=== PATIENT | male | born 1965 | race Caucasian/White ===

== ENCOUNTER 2016-08-27 14:36 | Inpatient (IN) | payer BC ==
[2016-08-27] MEDS ORDERED: Sodium Chloride 0.9% 1,000 ML IV SCH (15:15)
[2016-08-27] MEDS ORDERED: Ketorolac 30 MG/ML SDV IVPUSH ONE (15:17)
--- NOTE | 2016-08-27 15:18 | EDM.PDOC ---
ED HPI GI/ABDOMINAL - General Chief Complaint: Abdominal Pain Stated Complaint: BLOOD IN STOOL Time Seen by Provider: 08/27/16 14:59 Source of Information: Reports: Patient History Limitations: Reports: No limitations - History of Present Illness INITIAL COMMENTS - FREE TEXT/NARRATIVE: HISTORY AND PHYSICAL: History of present illness: [] Patient is a 51-year-old male with a history of diverticulitis previously recently clinically diagnosed by a local clinic with an episode of diverticulitis. Patient was prescribed Levaquin and what sounds like Flagyl as it was medicine for diverticulitis prescribed 3 times a day. He's been compliant over the last 2 days with these meds. Last dose of resumed Flagyl earlier today. Patient states his symptoms have been worsening. He is fevers and chills. Patient has nausea and worsening left lower quadrant abdominal pain. Pain is mildly worse with movement but does not hurt significantly to walk. This has no vomiting but he has had some diarrhea and earlier today a few streaks of blood in that diarrhea. He does not have any coagulopathy or take any anticoagulation medication. Review of systems: As per history of present illness and below otherwise all systems reviewed and negative. Past medical history: As per history of present illness and as reviewed below otherwise noncontributory. Surgical history: As per history of present illness and as reviewed below otherwise noncontributory. Social history: No reported history of drug or alcohol abuse. Family history: As per history of present illness and as reviewed below otherwise noncontributory. Physical exam: HEENT: Atraumatic, normocephalic, pupils reactive, negative for conjunctival pallor or scleral icterus, mucous membranes moist, throat clear, neck supple, nontender, trachea midline. Lungs: Clear to auscultation, breath sounds equal bilaterally, chest nontender. Heart: S1S2, regular, negative for clicks, rubs, or JVD. Abdomen: Soft, nondistended, lower quadrant tenderness. No guarding or rebound. Bowel sounds. Nondistended Negative for masses or hepatosplenomegaly. Negative for costovertebral tenderness. Pelvis: Stable nontender. Genitourinary: Deferred. Rectal: Deferred. Extremities: Atraumatic, negative for cords or calf pain. Neurovascular unremarkable. Neuro: Awake, alert, oriented. Cerebellum unremarkable. Motor and sensory unremarkable throughout. Exam nonfocal. Diagnostics: [] Therapeutics: [] Impression: [] Plan: [] Definitive disposition and diagnosis as appropriate pending reevaluation and review of above. - Related Data Allergies/ADRs: Allergies Allergy/AdvReac Type Severity Reaction Status Date / Time No Known Allergies Allergy Verified 08/27/16 15:35 Home Meds: Home Meds . [No Known Home Meds] 08/27/16 [History] ED ROS GENERAL - Review of Systems Review Of Systems: See Below (See history of present illness) ED EXAM, GI/ABD - Physical Exam Exam: See Below (See history of present illness) Course - Vital Signs Text/Narrative:: Signs and symptoms consistent with exacerbation of diverticulitis. Patient well- appearing and afebrile emergency department. Mild tachycardia on arrival 105. Labs with significantly elevated white blood cell count at 28. No bandemia. Patient with no peritoneal signs. Vital signs stable and improved IV fluids. Patient's pain is well-controlled. CT shows moderate to severe diverticulitis with ingestion of intramural abscess versus phlegmon however per radiology no drainable collection is identified. No evidence of perforation. Patient remains clinically stable. Case discussed with Dr. Rob Jacobson hospitalist corporate communications manager who is aware of history and findings and agrees with inpatient admission for treatment of the diverticulitis with sirs and sepsis. Patient with no evidence of septic shock. Stable on reevaluation prior to admission. And a box initiated blood cultures and lactate pending. Last Recorded V/S: Last Vital Signs Temp 37.0 C 08/27/16 15:19 Pulse 105 H 08/27/16 15:19 Resp 20 08/27/16 15:19 BP 129/68 08/27/16 15:19 Pulse Ox 96 08/27/16 15:19 - Orders/Labs/Meds Orders: Active Orders 24 hr Category Date Time Status CULTURE BLOOD [BC] Stat Lab 08/27/16 17:32 Received CULTURE BLOOD [BC] Stat Lab 08/27/16 17:53 Received UA W/MICROSCOPIC [URIN] Stat Lab 08/27/16 15:14 Uncollected Sodium Chloride 0.9% [Normal Saline] 1,000 ml Med 08/27/16 15:15 Active IV ASDIRECTED Blood Culture x2 Reflex Set [OM.PC] Stat Oth 08/27/16 17:22 Ordered Medication Orders Acetaminophen (Tylenol) 650 mg PO Q4H PRN PRN Reason: Pain (Mild 1-3)/fever Sodium Chloride (Normal Saline) 1,000 mls @ 999 mls/hr IV ASDIRECTED [facility] Last Admin: 08/27/16 16:38 Dose: 999 mls/hr Ciprofloxacin/Dextrose 400 mg/ (Premix) 200 mls @ 200 mls/hr IV Q12H [facility] Metronidazole 500 mg/ Premix 100 mls @ 100 mls/hr IV QID [facility] Ondansetron HCl (Zofran Odt) 4 mg PO Q4H PRN PRN Reason: nausea, able to take PO Temazepam (Restoril) 15 mg PO BEDTIME PRN PRN Reason: Sleep Tramadol HCl (Ultram) 50 mg PO Q6H PRN PRN Reason: Pain Labs: Laboratory Tests 08/27/16 08/27/16 08/27/16 Range/Units 15:27 15:27 17:32 WBC 28.41 H (4.0-11.0) K/uL RBC 4.97 (4.50-5.90) M/uL Hgb 14.8 (13.0-17.0) g/dL Hct 44.0 (38.0-50.0) % MCV 88.5 (80.0-98.0) fL MCH 29.8 (27.0-32.0) pg MCHC 33.6 (31.0-37.0) g/dL RDW Std Deviation 45.8 (28.0-62.0) fl RDW Coeff of Sarah 14 (11.0-15.0) % Plt Count 247 (150-400) K/uL MPV 8.90 (7.40-12.00) fL Neut % (Auto) 85.7 H (48.0-80.0) % Lymph % (Auto) 7.1 L (16.0-40.0) % [place] % (Auto) 7.0 (0.0-15.0) % Eos % (Auto) 0.1 (0.0-7.0) % Baso % (Auto) 0.1 (0.0-1.5) % Neut # 24.4 H (1.4-5.7) K/uL Lymph # 2.0 (0.6-2.4) K/uL [place] # 2.0 H (0.0-0.8) K/uL Eos # 0.0 (0.0-0.7) K/uL Baso # 0.0 (0.0-0.1) K/uL Nucleated RBC % 0.0 /100WBC Nucleated RBCs # 0 K/uL Lactate 0.8 (0.20-2.00) mmol/L Sodium 137 (136-146) mmol/L Potassium 3.7 (3.5-5.1) mmol/L Chloride 106 (98-110) mmol/L Carbon Dioxide 22 (21-31) mmol/L BUN 13 (6.0-23.0) mg/dL Creatinine 1.0 (0.6-1.5) mg/dL Est Cr Clr Drug Dosing TNP Estimated GFR (MDRD) > 60.0 ml/min Glucose 111 H (60-110) mg/dL Calcium 9.1 (8.8-10.8) mg/dL Total Bilirubin 1.2 (0.1-1.5) mg/dL AST 15 (5-40) IU/L ALT 14 (8-54) IU/L Alkaline Phosphatase 78 (40-150) Total Protein 7.3 (6.0-8.0) g/dL Albumin 3.8 (3.5-5.0) g/dL Globulin 3.5 (2.0-3.5) g/dL Albumin/Globulin Ratio 1.1 L (1.3-2.8) Lipase 16 (7-80) U/L Meds: Medications Generic Name Dose Route Start Last Admin Trade Name Freq PRN Reason Stop Dose Admin Acetaminophen 650 mg 08/27/16 18:25 Tylenol PO Q4H PRN Pain (Mild 1-3)/fever Sodium Chloride 1,000 mls @ 999 mls/hr 08/27/16 15:15 08/27/16 16:38 Normal Saline IV 999 mls/hr ASDIRECTED GEOVANNY Administration Ciprofloxacin/Dextrose 400 mg/ 200 mls @ 200 mls/hr 08/27/16 18:30 Premix IV Q12H GEOV[facility]NY Metronidazole 500 mg/ Premix 100 mls @ 100 mls/hr 08/28/16 00:00 IV QID [facility] Ondansetron HCl 4 mg 08/27/16 18:25 Zofran Odt PO Q4H PRN nausea, able to take PO Temazepam 15 mg 08/27/16 18:25 Restoril PO BEDTIME PRN Sleep Tramadol HCl 50 mg 08/27/16 18:25 Ultram PO Q6H PRN Pain Discontinued Medications Generic Name Dose Route Start Last Admin Trade Name Freq PRN Reason Stop Dose Admin Sodium Chloride 1,000 mls @ 999 mls/hr 08/27/16 17:23 08/27/16 17:41 Normal Saline IV 08/27/16 18:23 999 mls/hr STAT ONE Administration Piperacillin Sod/Tazobactam 100 mls @ 100 mls/hr 08/27/16 17:37 08/27/16 17: 55 Sod 4.5 gm/ Sodium Chloride IV 08/27/16 18:36 100 mls/hr ONETIME ONE Administration Iopamidol 100 ml 08/27/16 16:36 08/27/16 16:36 Isovue Multipack-370 (76%) IVPUSH 08/27/16 16:37 100 ml ONETIME STA Administration Ketorolac Tromethamine 30 mg 08/27/16 15:17 08/27/16 16:39 Toradol IVPUSH 08/27/16 15:18 30 mg ONETIME ONE Administration Departure - Departure Time of Disposition: 17:41 Disposition: Admitted As Inpatient 64 Condition: fair Clinical Impression: Diverticulitis large intestine Qualifiers: Diverticulitis bleeding: with bleeding Diverticulitis complication: without perforation or abscess Qualified Code(s): K57.33 - Diverticulitis of large intestine without perforation or abscess with bleeding - My Orders Last 24 Hours: My Active Orders 08/27/16 15:14 UA W/MICROSCOPIC [URIN] Stat 08/27/16 15:15 Sodium Chloride 0.9% [Normal Saline] 1,000 ml IV ASDIRECTED 08/27/16 17:22 Blood Culture x2 Reflex Set [OM.PC] Stat 08/27/16 17:32 CULTURE BLOOD [BC] Stat 08/27/16 17:53 CULTURE BLOOD [BC] Stat - Assessment/Plan Last 24 Hours: My Active Orders 08/27/16 15:14 UA W/MICROSCOPIC [URIN] Stat 08/27/16 15:15 Sodium Chloride 0.9% [Normal Saline] 1,000 ml IV ASDIRECTED 08/27/16 17:22 Blood Culture x2 Reflex Set [OM.PC] Stat 08/27/16 17:32 CULTURE BLOOD [BC] Stat 08/27/16 17:53 CULTURE BLOOD [BC] Stat
[2016-08-27 16:11] LABS: CHLORIDE,CL 106 mmol/L (98-110); SODIUM,NA 137 mmol/L (136-146)
[2016-08-27] MEDS ORDERED: Iopamidol 755 MG/ML 500 ML Multipack Bottle IVPUSH STA (16:36)
[2016-08-27] MEDS ORDERED: Sodium Chloride 0.9% 1,000 ML IV ONE (17:23)
[2016-08-27] MEDS ORDERED: Piperacillin/Tazobactam 4.5 GM in Sodium Chloride 0.9% 100 ML IV ONE (17:37)
[2016-08-27] MEDS ORDERED: Acetaminophen 325 MG Tab PO PRN (18:25)
[2016-08-27] MEDS ORDERED: traMADol 50 MG Tab PO PRN (18:25)
[2016-08-27] MEDS ORDERED: Ondansetron 4 MG Tab.DIS PO PRN (18:25)
[2016-08-27] MEDS ORDERED: Ciprofloxacin in D5W 400 MG in Premix Bag 1 BAG IV SCH ×2 (18:30)
[2016-08-27] MEDS ORDERED: metroNIDAZOLE/Normal Saline 500 MG in Premix Bag 1 BAG IV SCH (18:45)
--- NOTE | 2016-08-27 18:48 | PCM.HP ---
H&P History of Present Illness - General Date of Service: 08/27/16 Admit Problem/Dx: Admission Diagnosis/Problem Admission Diagnosis/Problem Diverticulitis Source of Information: Patient History Limitations: Reports: No limitations - History of Present Illness Initial Comments - Free Text/Narative: 51-year-old male admitted for diverticulitis on 08/27/16. Patient began to have symptoms last Wednesday. He states that he was having some diarrhea with minor amounts of blood. He took [id number] Imodium which seemed to help. Through the weekend his symptoms ddid seem to improve with taking Imodium so he returned to work on Wednesday. He began to have increasing symptoms on Wednesday evening and awoke Wednesday morning with severe lower abdominal pain. He had bright red blood per rectum and diarrhea and presented to the emergency department today. Patient states he has had a previous episode of diverticulitis, but it was not as severe as this. He did not have a colonscopy of this event. Patient states that the majority of his abdominal pain is located in the left lower quadrant. It is constant and crampy. He did have some associated nausea which has resolved. He denies any fever but states that he did have severe chills over the weekend and awoke with chills this morning. Patient denies any chest pain, palpitations, shortness of breath, syncopal episodes, or focal neurologic deficits. Patient has no previous medical history other than one episode of diverticulitis but takes no medications. Patient is originally from [place] and sees his family doctor there by the name of Vikas Lyons at [facility]. In the emergency department patient was found to have leukocytosis of 28.41, a normal lactate of 0.8, and a CT showing moderate to severe diverticulitis involving the proximal and mid portions of the sigmoid colon. There was no perforation. There was a probable very small intramural abscess or phlegmon. No drainable abscess collection was identified. He was given one dose of Zosyn, and blood cultures were obtained. Patient will be admitted for diverticulitis. Left Lower Abdomen Pain Score (Numeric/FACES): 3 - Related Data Allergies/Adverse Reactions: Allergies Allergy/AdvReac Type Severity Reaction Status Date / Time No Known Allergies Allergy Verified 08/27/16 15:35 Home Medications: Home Meds . [No Known Home Meds] 08/27/16 [History] Past Medical History HEENT History: Reports: None Cardiovascular History: Reports: None Respiratory History: Reports: None Gastrointestinal History: Reports: Diverticulosis Genitourinary History: Reports: None Musculoskeletal History: Reports: Fracture Neurological History: Reports: None Psychiatric History: Reports: None Endocrine/Metabolic History: Reports: None Hematologic History: Reports: None Immunologic History: Reports: None Oncologic (Cancer) History: Reports: None Dermatologic History: Reports: None - Past Surgical History HEENT Surgical History: Reports: None Cardiovascular Surgical History: Reports: None GI Surgical History: Reports: None Male Surgical History: Reports: None Musculoskeletal Surgical History: Reports: Other (see below) Other Musculoskeletal Surgeries/Procedures:: back surgery x 2, ankle fx, pelvic fx, L hip surgery Social & Family History - Tobacco Use Smoking Status *Q: Current Every Day Smoker Years of Tobacco use: 25 Packs/Tins Daily: 0.5 - Caffeine Use Caffeine Use: Reports: Coffee - Recreational Drug Use Recreational Drug Use: No H&P Review of Systems - Review of Systems: Review Of Systems: See Below General: Reports: chills, night sweats, diaphoresis. Denies: fever HEENT: Denies: ear pain, eye pain, headaches, sore throat Pulmonary: Denies: Shortness of Breath, Hemoptysis Cardiovascular: Denies: chest pain, palpitations, edema Gastrointestinal: Reports: Abdominal pain, Bloody stool, Diarrhea, Nausea Genitourinary: Denies: dysuria, hematuria Musculoskeletal: Denies: neck pain, leg pain Skin: Denies: cyanosis Psychiatric: Denies: confusion Neurological: Denies: Confusion, Dizziness Hematologic/Lymphatic: Denies: anemia, easy bleeding, easy bruising Immunologic: Denies: food allergy Exam - Exam Exam: See Below - Vital Signs Vital Signs: Last Vital Signs Temp 37.0 C 08/27/16 15:19 Pulse 105 H 08/27/16 15:19 Resp 20 08/27/16 15:19 BP 129/68 08/27/16 15:19 Pulse Ox 96 08/27/16 15:19 Weight: 95.254 kg - Exam General: alert, oriented, cooperative HEENT: PERRLA, Hearing intact, Mucosa moist & pink, Nares patent, Normal nasal septum, Posterior pharynx clear, Conjunctiva clear, EOMI, EACs clear, TMs clear Neck: supple, trachea midline, 2 Lungs: Clear to auscultation, Normal respiratory effort Cardiovascular: regular rate, regular rhythm Abdomen: normal bowel sounds, soft, tenderness, hyperactive bowel sounds Back Exam: normal inspection Extremities: normal inspection, normal pulses Peripheral Pulses: 2+: radial (L), radial (R), posterior tibial (L), posterior tibial (R), dorsalis pedis (L), dorsalis pedis (R) Skin: warm, dry, intact Neurological: cranial nerves intact Neuro Extensive - Mental Status: alert, oriented x3, normal mood/affect, normal cognition Neuro Extensive - Motor, Sensory, Reflexes: CN II-XII intact, normal gait Psychiatric: alert, normal affect, normal mood - Patient Data Result Diagrams: 08/27/16 15:27 08/27/16 15:27 *Q Meaningful Use (ADM) - VTE *Q VTE Criteria *Q: - Stroke *Q Stroke Criteria *Q: - AMI *Q AMI Criteria *Q: - Problem List (1) Diverticulitis large intestine SNOMED Code(s): 2364740 ICD Code: K57.32 - DVTRCLI OF LG INT W/O PERFORATION OR ABSCESS W/O BLEEDING Status: Acute Priority: High Current Visit: Yes Qualifiers: Diverticulitis bleeding: with bleeding Diverticulitis complication: without perforation or abscess Qualified Code(s): K57.33 - Diverticulitis of large intestine without perforation or abscess with bleeding Problem List Initiated/Reviewed/Updated: Yes Orders Last 24hrs: Active Orders 24 hr Category Date Time Status Patient Status [ADT] Routine ADT 08/27/16 18:25 Ordered Antiembolic Devices [RC] PER UNIT ROUTINE Care 08/27/16 18:33 Ordered May Shower [RC] ASDIRECTED Care 08/27/16 18:25 Ordered Oxygen Therapy [RC] PRN Care 08/27/16 18:25 Ordered Up ad Charu [RC] ASDIRECTED Care 08/27/16 18:25 Ordered VTE/DVT Education [RC] PER UNIT ROUTINE Care 08/27/16 18:25 Ordered Vital Signs [RC] Q4H Care 08/27/16 18:25 Ordered Low Fiber Diet [DIET] Diet 08/27/16 Breakfast Ordered BASIC METABOLIC PANEL,BMP [CHEM] DAILY Lab 08/28/16 05:10 Ordered BASIC METABOLIC PANEL,BMP [CHEM] DAILY Lab 08/29/16 05:10 Ordered BASIC METABOLIC PANEL,BMP [CHEM] DAILY Lab 08/30/16 05:10 Ordered BASIC METABOLIC PANEL,BMP [CHEM] DAILY Lab 08/31/16 05:10 Ordered CBC WITH AUTO DIFF [HEME] DAILY Lab 08/28/16 05:10 Ordered CBC WITH AUTO DIFF [HEME] DAILY Lab 08/29/16 05:10 Ordered CBC WITH AUTO DIFF [HEME] DAILY Lab 08/30/16 05:10 Ordered CBC WITH AUTO DIFF [HEME] DAILY Lab 08/31/16 05:10 Ordered Acetaminophen [Tylenol] Med 08/27/16 18:25 Ordered 650 mg PO Q4H PRN Ciprofloxacin in D5W [Cipro in D5W 400 MG/200 ML] 400 Med 08/27/16 18:30 Ordered mg Premix Bag 1 bag IV Q12H Ondansetron [Zofran ODT] Med 08/27/16 18:25 Ordered 4 mg PO Q4H PRN Temazepam [Restoril] Med 08/27/16 18:25 Ordered 15 mg PO BEDTIME PRN metroNIDAZOLE/Normal Saline [Flagyl 500 MG in NS 100 ML Med 08/28/16 00:00 Ordered ] 500 mg Premix Bag 1 bag IV QID traMADol [Ultram] Med 08/27/16 18:25 Ordered 50 mg PO Q6H PRN Sequential Compression Device [OM.PC] Per Unit Routine Oth 08/27/16 18:27 Ordered Resuscitation Status Routine Resus Stat 08/27/16 18:25 Ordered Medication Orders Sodium Chloride (Normal Saline) 1,000 mls @ 999 mls/hr IV ASDIRECTED [facility] Last Admin: 08/27/16 16:38 Dose: 999 mls/hr Assessment/Plan Comment:: 51 yo male admitted 08/27/16 for acute diverticulitis of the large intestine. Diverticulitis: Patient admitted to floor and start on Cipro, Flagyl. Will have low residue diet to prevent increased bowel motility. Will use Tylenol primarily for pain control with Toradol for more severe pain. Will try and stay away from opiods so as not to slow bowel. Patient had a white count of 28.41 in ED but normal lactate. Will get daily labs to assess effectiveness of antibiotics and switch to oral possibly tomorrow. VTE: SCD no pharmacologic secondary to active bleeding. Up and ambulate as tolerated. Dispo: 1-2 days pending.
--- NOTE | 2016-08-27 19:03 | CT ---
EXAM DATE: 08/27/16 PATIENT'S AGE: 51 Patient: KATHYA SAL Facility: [place], [place] Site . Site : [id number] Study: CT Abdomen/Pelvis W CONT [id number]/16/2017 4:38:06 PM Ordering Physician: Perry Baker Final Report: INDICATION: Abdominal pain. Blood in stool. Seen in clinic this morning with diagnosis of diverticulitis. CT ABDOMEN AND PELVIS WITH CONTRAST TECHNIQUE: Multidetector CT imaging was performed through the abdomen and pelvis following intravenous contrast administration. Coronal and sagittal reconstructions were generated. COMPARISON: None. FINDINGS: Lower chest: Lung bases clear aside from minimal atelectasis. Liver: Within normal limits. Gallbladder and bile ducts: No gallbladder wall thickening or calcified gallstones. No biliary dilation identified. Pancreas: Unremarkable. Spleen: Normal. Adrenals: No nodules or masses. Kidneys, ureters, and urinary bladder: No renal masses or hydronephrosis. Nondistended urinary bladder with resultant diffuse wall prominence. Gastrointestinal tract and peritoneum: Normal caliber small bowel without wall thickening or obstruction. The appendix is normal. Multiple colonic diverticula. Wall thickening of the proximal and mid portions of the sigmoid colon with adjacent fat stranding, consistent with diverticulitis. Small ovoid hypodensity within the superior wall of the mid sigmoid colon measuring 2 x 1 x 1 centimeters in size, as on image 112 of series 2 1 and image 42 of series 203 consistent with a very small intramural abscess or phlegmon. No drainable abscess collection identified. No free air. Vascular structures: Normal caliber abdominal aorta with minimal atherosclerotic calcification. Lymph nodes: No pathologically enlarged nodes identified. Reproductive organs: No pelvic masses. Bones: Mild spinal degenerative changes. IMPRESSION: Moderate to severe diverticulitis involving the proximal and mid portions of the sigmoid colon. No evidence of perforation. Probable very small intramural abscess or phlegmon, as noted. No drainable abscess collection identified. ASHUTOSH MARISCAL MD [employer] [employer] Dictated by Steven Mariscal MD @ 08/27/2016 4:50:01 PM Dictated by: Steven Mariscal MD @ 08/27/2016 16:55:35 (Electronic Signature) Report Signed by Proxy and Original Signed Document filed in the Medical Record. [facility]
[2016-08-27] MEDS: Pantoprazole 80 MG in Sodium Chloride 0.9% 100 ML IV SCH (21:38)
[2016-08-28] MEDS ORDERED: metroNIDAZOLE/Normal Saline 500 MG in Premix Bag 1 BAG IV SCH ×2
[2016-08-28] MEDS: Piperacillin/Tazobactam 4.5 GM in Sodium Chloride 0.9% 100 ML IV SCH ×5 (00:07→23:26)
[2016-08-28] MEDS: Temazepam 15 MG Cap PO PRN ×2 (00:08→20:42)
[2016-08-28] MEDS ORDERED: Sodium Chloride 0.9% 500 ML IV SCH (00:30)
[2016-08-28] MEDS: Sodium Chloride 0.9% 1,000 ML IV SCH ×3 (01:00→20:42)
[2016-08-28 05:47] LABS: CHLORIDE,CL 112 mmol/L (98-110); SODIUM,NA 139 mmol/L (136-146)
[2016-08-28] MEDS: Pantoprazole 80 MG in Sodium Chloride 0.9% 100 ML IV SCH ×2 (06:31→15:31)
--- NOTE | 2016-08-28 08:27 | PCM.SN ---
- Free Text/Narrative Note: pt seen, chart reviewed; diverticulitis w abscess by h/p and imaging studies; npo w PPI, iv abx, serial abd exam; start PO diet when pain resolved; wesley PO X 24 hr, home on PO abx X 2 - 3 wks for a complete course of 3 wks abx; then fu with provider and a fu colonoscopy 2 - 3 mos from today; will follow with you; [id number]
--- NOTE | 2016-08-28 09:52 | PCM.PN ---
- General Info Date of Service: 08/28/16 Admission Dx/Problem (Free Text): Admission Diagnosis/Problem Admission Diagnosis/Problem Diverticulitis Subjective Update: Doing well this morning. Very little pain now. Has made arrangements to stay at hospital for extended time. No complaints at this time. Functional Status: Reports: pain controlled, urinating - Review of Systems General: Denies: Fever, Weakness Pulmonary: Denies: shortness of breath, hemoptysis, wheezing Cardiovascular: Denies: Chest Pain, Palpitations, Edema Gastrointestinal: Denies: Abdominal pain, Diarrhea Genitourinary: Denies: dysuria Musculoskeletal: Denies: leg pain, foot pain Skin: Denies: cyanosis Neurological: Denies: Confusion, Dizziness Psychiatric: Denies: confusion, depression - Patient Data Vitals - most recent: Last Vital Signs Temp 36.2 C 08/28/16 08:00 Pulse 77 08/28/16 08:00 Resp 20 08/28/16 08:00 BP 136/70 08/28/16 08:00 Pulse Ox 96 08/28/16 08:00 Weight - most recent: 95.254 kg I&O - last 24 hours: Intake & Output 08/27/16 08/28/16 08/28/16 22:59 06:59 14:59 Intake Total 100 850 Output Total 300 Balance 100 550 Lab Results last 24 hrs: Laboratory Results - last 24 hr 08/28/16 08/28/16 Range/Units 05:08 05:08 WBC 17.24 H (4.0-11.0) K/uL RBC 4.49 L (4.50-5.90) M/uL Hgb 13.1 (13.0-17.0) g/dL Hct 40.4 (38.0-50.0) % MCV 90.0 (80.0-98.0) fL MCH 29.2 (27.0-32.0) pg MCHC 32.4 (31.0-37.0) g/dL RDW Std Deviation 46.8 (28.0-62.0) fl RDW Coeff of Sarah 14 (11.0-15.0) % Plt Count 249 (150-400) K/uL MPV 9.30 (7.40-12.00) fL Neut % (Auto) 78.0 (48.0-80.0) % Lymph % (Auto) 14.1 L (16.0-40.0) % Edwards % (Auto) 6.9 (0.0-15.0) % Eos % (Auto) 0.8 (0.0-7.0) % Baso % (Auto) 0.2 (0.0-1.5) % Neut # 13.5 H (1.4-5.7) K/uL Lymph # 2.4 (0.6-2.4) K/uL Edwards # 1.2 H (0.0-0.8) K/uL Eos # 0.1 (0.0-0.7) K/uL Baso # 0.0 (0.0-0.1) K/uL Nucleated RBC % 0.0 /100WBC Nucleated RBCs # 0 K/uL Sodium 139 (136-146) mmol/L Potassium 3.9 (3.5-5.1) mmol/L Chloride 112 H (98-110) mmol/L Carbon Dioxide 20 L (21-31) mmol/L BUN 11 (6.0-23.0) mg/dL Creatinine 0.9 (0.6-1.5) mg/dL Est Cr Clr Drug Dosing 110.36 mL/min Estimated GFR (MDRD) > 60.0 ml/min Glucose 93 (60-110) mg/dL Calcium 7.8 L (8.8-10.8) mg/dL Med Orders - Current: Current Medications Acetaminophen (Tylenol) 650 mg PO Q4H PRN PRN Reason: Pain (Mild 1-3)/fever Sodium Chloride (Normal Saline) 1,000 mls @ 999 mls/hr IV ASDIRECTED [facility] Last Admin: 08/27/16 16:38 Dose: 999 mls/hr Piperacillin Sod/Tazobactam (Sod 4.5 gm/ Sodium Chloride) 100 mls @ 100 mls/hr IV Q6H [facility] Last Admin: 08/28/16 05:17 Dose: 100 mls/hr Pantoprazole Sodium 80 mg/ (Sodium Chloride) 100 mls @ 10 mls/hr IV Q10H [facility] Last Admin: 08/28/16 06:31 Dose: 10 mls/hr Sodium Chloride (Normal Saline) 500 mls @ 999 mls/hr IV .BOLUS [facility] Last Admin: 08/28/16 00:28 Dose: 999 mls/hr Sodium Chloride (Normal Saline) 1,000 mls @ 125 mls/hr IV ASDIRECTED [facility] Last Admin: 08/28/16 01:00 Dose: 125 mls/hr Ondansetron HCl (Zofran Odt) 4 mg PO Q4H PRN PRN Reason: nausea, able to take PO Temazepam (Restoril) 15 mg PO BEDTIME PRN PRN Reason: Sleep Last Admin: 08/28/16 00:08 Dose: 15 mg Tramadol HCl (Ultram) 50 mg PO Q6H PRN PRN Reason: Pain Discontinued Medications Sodium Chloride (Normal Saline) 1,000 mls @ 999 mls/hr IV STAT ONE Stop: 08/27/16 18:23 Last Admin: 08/27/16 17:41 Dose: 999 mls/hr Piperacillin Sod/Tazobactam (Sod 4.5 gm/ Sodium Chloride) 100 mls @ 100 mls/hr IV ONETIME ONE Stop: 08/27/16 18:36 Last Admin: 08/27/16 17:55 Dose: 100 mls/hr Iopamidol (Isovue Multipack-370 (76%)) 100 ml IVPUSH ONETIME STA Stop: 08/27/16 16:37 Last Admin: 08/27/16 16:36 Dose: 100 ml Ketorolac Tromethamine (Toradol) 30 mg IVPUSH ONETIME ONE Stop: 08/27/16 15:18 Last Admin: 08/27/16 16:39 Dose: 30 mg - Exam Quality Assessment: supplemental oxygen General: alert, oriented HEENT: Pupils equal, Pupils reactive, EOMI, Mucous membr. moist/pink Neck: supple Lungs: Clear to auscultation, Normal respiratory effort Cardiovascular: Regular Rate, Regular Rhythm Abdomen: bowel sounds present, soft, no tenderness, no distension (Male) Exam: No hernia, Normal inspection, Normal prostate, Circumcised Back Exam: normal inspection, full range of motion Extremities: no edema Peripheral Pulses: 2+: radial (L), radial (R), posterior tibial (L), posterior tibial (R), dorsalis pedis (L), dorsalis pedis (R) Skin: warm, dry, intact Wound/Incisions: healing well Neurological: no new focal deficit Psy/Mental Status: alert, normal affect, normal mood - Problem List & Annotations (1) Diverticulitis large intestine SNOMED Code(s): 5533844 Code(s): K57.32 - DVTRCLI OF LG INT W/O PERFORATION OR ABSCESS W/O BLEEDING Status: Acute Priority: High Qualifiers: Diverticulitis bleeding: with bleeding Diverticulitis complication: without perforation or abscess Qualified Code(s): K57.33 - Diverticulitis of large intestine without perforation or abscess with bleeding - Problem List Review Problem List Initiated/Reviewed/Updated: Yes - My Orders Last 24 Hours: My Active Orders 08/27/16 18:25 Patient Status [ADT] Routine May Shower [RC] ASDIRECTED Oxygen Therapy [RC] PRN Up ad Charu [RC] ASDIRECTED VTE/DVT Education [RC] PER UNIT ROUTINE Vital Signs [RC] Q4H Acetaminophen [Tylenol] 650 mg PO Q4H PRN Ondansetron [Zofran ODT] 4 mg PO Q4H PRN Temazepam [Restoril] 15 mg PO BEDTIME PRN traMADol [Ultram] 50 mg PO Q6H PRN Resuscitation Status Routine 08/27/16 18:27 Sequential Compression Device [OM.PC] Per Unit Routine 08/27/16 18:33 Antiembolic Devices [RC] PER UNIT ROUTINE 08/27/16 20:30 Pantoprazole [Protonix IV] 80 mg Sodium Chloride 0.9% [Normal Saline] 100 ml IV Q10H 08/28/16 00:00 Piperacillin/Tazobactam [Piperacil-Tazobact] 4.5 gm Sodium Chloride 0.9% [ Normal Saline] 100 ml IV Q6H 08/29/16 05:10 BASIC METABOLIC PANEL,BMP [CHEM] DAILY CBC WITH AUTO DIFF [HEME] DAILY 08/30/16 05:10 BASIC METABOLIC PANEL,BMP [CHEM] DAILY CBC WITH AUTO DIFF [HEME] DAILY 08/31/16 05:10 BASIC METABOLIC PANEL,BMP [CHEM] DAILY CBC WITH AUTO DIFF [HEME] DAILY - Plan Plan:: 51 yo male admitted 08/27/16 for acute diverticulitis of the large intestine. Diverticulitis: Patient admitted to floor and start on Cipro, Flagyl. Will have low residue diet to prevent increased bowel motility. Will use Tylenol primarily for pain control with Toradol for more severe pain. Will try and stay away from opiods so as not to slow bowel. Patient had a white count of 28.41 in ED but normal lactate. Will get daily labs to assess effectiveness of antibiotics and switch to oral possibly tomorrow. VTE: SCD no pharmacologic secondary to active bleeding. Up and ambulate as tolerated. Dispo: 1-2 days pending.
[2016-08-29] MEDS: Pantoprazole 80 MG in Sodium Chloride 0.9% 100 ML IV SCH (01:41)
[2016-08-29] MEDS: Piperacillin/Tazobactam 4.5 GM in Sodium Chloride 0.9% 100 ML IV SCH (05:03)
[2016-08-29] MEDS: Sodium Chloride 0.9% 1,000 ML IV SCH (05:04)
[2016-08-29 07:24] LABS: CHLORIDE,CL 110 mmol/L (98-110); SODIUM,NA 140 mmol/L (136-146)
[2016-08-29 08:52] VITALS: BP 138/78
--- NOTE | 2016-08-29 11:57 | PCM.DCSUM1 ---
Discharge Summary - Discharge Data Discharge Date: 08/29/16 Discharge Disposition: Home, Self-Care 01 Condition: Good - Patient Summary/Data Hospital Course: Admission diagnosis: Acute diverticulitis Hospital Course: 51-year-old male admitted for diverticulitis on 08/27/16. He presented with abdominal pain and bloody diarrhea. He had WBC of 28.41 and a normal lactate of 0.8. CT scan showed moderate to severe diverticulitis involving the proximal and mid portions of the sigmoid colon.There was a probable very small intramural abscess or phlegmon. No drainable abscess collection was identified. He was treated with IV Zosyn and bowel rest. His abdominal pain and bloody diarrhea did resolve. His diet was advance to clears which he tolerated well. His Hgb remained stable at around 13. Today on his third hospital day he is requesting discharge. Dr. Forte a general surgeon was consulted and recommend two weeks of Ciprofloxacin and Flagyl with colonoscopy in two months. He is to follow up with his PCP Vikas Lyons at [facility]. - Patient Instructions Diet: Usual Diet as Tolerated - Discharge Plan Prescriptions/Med Rec: Ciprofloxacin HCl [Cipro] 500 mg PO Q12H #14 tablet metroNIDAZOLE [Flagyl] 500 mg PO Q8H #21 tablet Home Medications: Home Meds Ciprofloxacin HCl [Cipro] 500 mg PO Q12H #14 tablet 08/29/16 [Rx] metroNIDAZOLE [Flagyl] 500 mg PO Q8H #21 tablet 08/29/16 [Rx] Patient Handouts: Diverticulitis, [id number], Ciprofloxacin tablets, Metronidazole tablets or capsules Referrals: PCP,None [Primary Care Provider] - - Patient Data Vitals - Most Recent: Last Vital Signs Temp 36.7 C 08/29/16 07:00 Pulse 77 08/29/16 07:00 Resp 18 08/29/16 07:00 BP 138/78 08/29/16 07:00 Pulse Ox 94 L 08/29/16 07:00 Weight - Most Recent: 95.254 kg I&O - Last 24 hours: Intake & Output 08/28/16 08/29/16 08/29/16 22:59 06:59 14:59 Intake Total 1600 1360 Output Total 800 1000 Balance 800 360 Lab Results - Last 24 hrs: Laboratory Results - last 24 hr 08/28/16 08/29/16 08/29/16 Range/Units 12:10 06:18 06:18 WBC 14.26 H (4.0-11.0) K/uL RBC 4.51 (4.50-5.90) M/uL Hgb 13.1 (13.0-17.0) g/dL Hct 40.4 (38.0-50.0) % MCV 89.6 (80.0-98.0) fL MCH 29.0 (27.0-32.0) pg MCHC 32.4 (31.0-37.0) g/dL RDW Std Deviation 45.5 (28.0-62.0) fl RDW Coeff of Sarah 14 (11.0-15.0) % Plt Count 251 (150-400) K/uL MPV 9.60 (7.40-12.00) fL Neut % (Auto) 76.0 (48.0-80.0) % Lymph % (Auto) 13.3 L (16.0-40.0) % Grimes % (Auto) 9.4 (0.0-15.0) % Eos % (Auto) 1.2 (0.0-7.0) % Baso % (Auto) 0.1 (0.0-1.5) % Neut # 10.8 H (1.4-5.7) K/uL Lymph # 1.9 (0.6-2.4) K/uL Grimes # 1.3 H (0.0-0.8) K/uL Eos # 0.2 (0.0-0.7) K/uL Baso # 0.0 (0.0-0.1) K/uL Nucleated RBC % 0.0 /100WBC Nucleated RBCs # 0 K/uL Sodium 140 (136-146) mmol/L Potassium 3.6 (3.5-5.1) mmol/L Chloride 110 (98-110) mmol/L Carbon Dioxide 21 (21-31) mmol/L BUN 6 (6.0-23.0) mg/dL Creatinine 0.8 (0.6-1.5) mg/dL Est Cr Clr Drug Dosing 124.16 mL/min Estimated GFR (MDRD) > 60.0 ml/min Glucose 67 (60-110) mg/dL Calcium 7.9 L (8.8-10.8) mg/dL Urine Color YELLOW Urine Appearance CLEAR Urine pH 6.0 (5.0-8.0) Ur Specific Force 1.025 (1.001-1.035) Urine Protein NEGATIVE (NEGATIVE) mg/dL Urine Glucose (UA) NEGATIVE (NEGATIVE) mg/dL Urine Ketones TRACE H (NEGATIVE) mg/dL Urine Occult Blood MODERATE (NEGATIVE) Urine Nitrite NEGATIVE (NEGATIVE) Urine Bilirubin NEGATIVE (NEGATIVE) Urine Urobilinogen 0.2 (<2.0) EU/dL Ur Leukocyte Esterase NEGATIVE (NEGATIVE) Urine RBC 2-4 (0-2/HPF) Urine WBC 0-1 (0-5/HPF) Ur Epithelial Cells RARE (NONE-FEW) Urine Bacteria RARE (NEGATIVE) NISH Results - Last 24 hrs: Microbiology 08/27/16 17:53 Aerobic Blood Culture - Preliminary Blood - Venous - Lab Draw NO GROWTH AFTER 1 DAY Anaerobic Blood Culture - Preliminary NO GROWTH AFTER 1 DAY Med Orders - Current: Current Medications Acetaminophen (Tylenol) 650 mg PO Q4H PRN PRN Reason: Pain (Mild 1-3)/fever Sodium Chloride (Normal Saline) 1,000 mls @ 999 mls/hr IV ASDIRECTED [facility] Last Admin: 08/27/16 16:38 Dose: 999 mls/hr Piperacillin Sod/Tazobactam (Sod 4.5 gm/ Sodium Chloride) 100 mls @ 100 mls/hr IV Q6H [facility] Last Admin: 08/29/16 05:03 Dose: 100 mls/hr Pantoprazole Sodium 80 mg/ (Sodium Chloride) 100 mls @ 10 mls/hr IV Q10H [facility] Last Admin: 08/29/16 01:41 Dose: 10 mls/hr Sodium Chloride (Normal Saline) 500 mls @ 999 mls/hr IV .BOLUS [facility] Last Admin: 08/28/16 00:28 Dose: 999 mls/hr Sodium Chloride (Normal Saline) 1,000 mls @ 125 mls/hr IV ASDIRECTED [facility] Last Admin: 08/29/16 05:04 Dose: 125 mls/hr Ondansetron HCl (Zofran Odt) 4 mg PO Q4H PRN PRN Reason: nausea, able to take PO Temazepam (Restoril) 15 mg PO BEDTIME PRN PRN Reason: Sleep Last Admin: 08/28/16 20:42 Dose: 15 mg Tramadol HCl (Ultram) 50 mg PO Q6H PRN PRN Reason: Pain Discontinued Medications Sodium Chloride (Normal Saline) 1,000 mls @ 999 mls/hr IV STAT ONE Stop: 08/27/16 18:23 Last Admin: 08/27/16 17:41 Dose: 999 mls/hr Piperacillin Sod/Tazobactam (Sod 4.5 gm/ Sodium Chloride) 100 mls @ 100 mls/hr IV ONETIME ONE Stop: 08/27/16 18:36 Last Admin: 08/27/16 17:55 Dose: 100 mls/hr Iopamidol (Isovue Multipack-370 (76%)) 100 ml IVPUSH ONETIME STA Stop: 08/27/16 16:37 Last Admin: 08/27/16 16:36 Dose: 100 ml Ketorolac Tromethamine (Toradol) 30 mg IVPUSH ONETIME ONE Stop: 08/27/16 15:18 Last Admin: 08/27/16 16:39 Dose: 30 mg *Q Meaningful Use (DIS) - VTE *Q VTE Criteria *Q: - Stroke *Q Stroke Criteria *Q: - AMI *Q AMI Criteria *Q:
--- NOTE | 2016-09-07 08:41 | CONS ---
DATE OF CONSULTATION: 08/28/2016 DATE OF : 1965 PRIMARY CARE PHYSICIAN: None PCP Consult was called, and the patient was seen shortly after. REASON FOR CONSULTATION: Diverticulitis. 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 Denied nausea, vomiting, and fever. The patient caught a flu and went to seek medical attention in the emergency room last night and was admitted. Workup included blood work and CAT scan. Blood work shows a white count of 28.4 and CAT scan shows severe diverticulitis. The patient was admitted to medical service for further management and Surgery was consulted. The patient currently has no pain and is asking for food. The patient denied previous colonoscopy study. PAST MEDICAL HISTORY: Significant for known diabetic, CA, CVA, and hypertension. PAST SURGICAL HISTORY: Exploratory laparotomy and bowel resection as a , 6 days ago. SOCIAL HISTORY: The patient is a current everyday smoker and some history of alcohol use. ALLERGIES: Please refer to nursing for details. MEDICATION: Please refer to nursing for details. PHYSICAL EXAMINATION: GENERAL: Gentleman smiled to the doctor, but complaining or unhappy above situation, in no acute distress. HEENT: Normocephalic and atraumatic. Sclerae anicteric. LUNGS: Clear to auscultation. HEART: Regular rate and rhythm. ABDOMEN: Soft and nondistended. No pulsating, tender midline abdominal structure. No apparent surgical scar. No hernia. Absolutely nontender. There maybe some subjective tenderness on the left lower quadrant. VITAL SIGNS: Afebrile this morning. IV antibiotic was on for 12 hours. LABORATORY DATA: The patient's white count dropped from 28 to 17. H and H also dropped from 15 and 44 to 13 and 40. BUN is 13, creatinine is 1, albumin is 1.1. The patient is good with nutrition. CAT scan revealed [id number] diverticulitis involving proximal and midsigmoid colon. No perforation, but with abscess or phlegmon that is not drainable. IMPRESSION: Diverticulitis with abscess, but is not drainable. PLAN: We will start IV antibiotic as you are doing. Prefer IV Levaquin and IV Flagyl over Zosyn, not much different, but slightly better. Check serial abdominal exam. When pain is manageable, we will start with oral diet and able to tolerate oral diet for 24 hours and will send home with 2 to 3 weeks of p.o. antibiotic for complete treatment of 3-week antibiotic. The patient should have a followup colonoscopy in 2 to 3 months from today. All has been explained to the patient. The patient responds that he will consider. We will follow with you. N.p.o. As always, thank you for the kind referral. NIA RUDOLPH /[id number]
== END 2016-08-29 12:15 | disposition home or self-care (01) | DRG 244 ==
LOC: MW.ED 14:36 → MW.MS 17:34
PROVIDERS: ADMIT Internal Medicine; ATTEND Internal Medicine
DX: K57.33 Diverticulitis of large intestine without perforation or abscess with bleeding (principal); F17.200 Nicotine dependence, unspecified, uncomplicated
CPT/HCPCS: 36415; 74177; 74177-26; 80048; 80053; 81001; 83605; 83690; 85025; 87040; 96361; 96365; 96375; 97802; 99284; 99285-25; A9270-GY; C9113; J1885; J2543; J7030; J7040; Q9967